=== PATIENT | male | born 1990 | race Two or more races ===

== ENCOUNTER 2023-12-20 07:48 | Inpatient (IN) | payer OTHER ==
[2023-12-17 08:49] LABS: Urine Bacteria None Seen /hpf (None Seen)
[2023-12-17 09:03] LABS: Basophils # (auto) 0 10 ^3/uL (0-0.2); Basophils % (auto) 0.5 % (0.0-2.0); Eosinophils # (auto) 0.2 10 ^3/uL (0-0.8); Eosinophils % (auto) 2.7 % (0.0-7.0); Hematocrit 44.7 % (41.0-53.0); Hemoglobin 15.1 g/dL (13.5-17.5); Lymphocytes # (auto) 2.1 10 ^3/uL (0.4-5.4); Lymphocytes % (auto) 30.8 % (10.0-50.0); Mean Corpuscular Hemoglobin 29.2 pg (28.0-32.0); Mean Corpuscular Hgb Conc. 33.8 g/dL (32.0-36.0); Mean Corpuscular Volume 86.4 fL (80.0-100.0); Monocytes # (auto) 0.4 10 ^3/uL (0-1.3); Monocytes % (auto) 6.2 % (0.0-12.0); Neutrophils # (auto) 4.1 10 ^3/uL (1.6-8.6); Neutrophils % (auto) 59.8 % (37.0-80.0); Nucleated Red Blood Cells % 0.2 %; Platelet Count (auto) 195 10^3/uL (140-450); Red Blood Cells 5.18 10^6/uL (4.5-5.90); Red Cell Distribution Width 14.9 % (11.8-14.3); White Blood Cell 6.8 10^3/uL (4.4-10.8)
[2023-12-17 09:18] LABS: INR 1.03 (0.9-1.15); Partial Thromboplastin Time 26.1 SEC (24.5-34.5); Prothrombin Time 10.9 sec (9.3-11.8)
[2023-12-17 09:22] LABS: Urine Blood Negative /uL (Negative); Urine Clarity Clear (Clear); Urine Color Light-Yellow (Yellow); Urine Protein, UAD Negative (Negative); Urine Specific Gravity 1.014 (1.001-1.035); Urine Urobilinogen Normal (Negative); Urine WBC <1 /hpf (0 - 3)
[2023-12-17 09:47] LABS: Alanine Aminotransferase 29 U/L (7-40); Albumin 4.4 g/dL (3.2-4.8); Alkaline Phosphatase 58 U/L (46-116); Anion Gap 8 (5-15); Aspartate Aminotransferase 14 U/L (13-40); BUN/Creatinine Ratio 7.4 (10.0-20.0); Blood Urea Nitrogen 7 mg/dL (9-23); Calcium 9.8 mg/dL (8.7-10.4); Carbon Dioxide 26 mmol/L (20-30); Chloride 105 mmol/L (98-107); Glucose 92 mg/dL (74-106); Potassium 4.4 mmol/L (3.5-5.1); Sodium 139 mmol/L (136-145)
[2023-12-17 09:48] LABS: Bilirubin, Total 0.6 mg/dL (0.2-1.0); Total Protein 6.9 g/dL (5.7-8.2)
[~2023-12-20] VITALS: Ht 188 cm; Wt 141.5 kg
[~2023-12-20 07:48] MED LIST: CYCL-839 PO; GABA-1250 PO; NAP500T PO
[2023-12-20 08:05] VITALS: BP 141/72; PULSE 85; RESP 16; TEMP 98.3; O2SAT 95
[2023-12-20] MEDS: ceFAZolin 2 GM/D5W100ml 100 ML IV ONE (08:37)
[2023-12-20] MEDS: levoFLOXacin 750MG 150 ML IV ONE (10:00)
[2023-12-20] MEDS ORDERED: KETAMINE 50mg/ML 1ml syringe ONE (10:53)
[2023-12-20] MEDS ORDERED: HYDROmorphone HCL 2 MG/ML VL/or syr ONE (10:53)
[2023-12-20] MEDS ORDERED: MIDAZOLAM HCL 2MG/2ML 2ml VIAL (1mg/ml) ONE (10:53)
[2023-12-20] MEDS ORDERED: fentaNYL CITRATE 100 MCG/2 ML VL ONE (10:53)
[2023-12-20] MEDS ORDERED: LIDOCAINE 1% INJ PF 5ML AMP ONE (10:54)
[2023-12-20] MEDS ORDERED: GLYCOPYRROLATE 0.2 MG/ML 1ML VIAL ONE (10:54)
[2023-12-20] MEDS ORDERED: DexAMETHasone SOD PHOS 10MG/1ML VIAL INJ ONE (10:54)
[2023-12-20] MEDS ORDERED: PROPOFOL 10 MG/ML 20 ML IV ONE ×5 (10:54→17:13)
[2023-12-20] MEDS ORDERED: ROCURONIUM 10MG/ML 10ML VIAL IV ONE (10:54)
[2023-12-20] MEDS ORDERED: KETOROLAC TROMETH 30 MG/ML 1ML VIAL ONE (10:54)
[2023-12-20] MEDS ORDERED: ONDANSETRON HCL 4 MG/2 ML VIAL ONE (10:54)
[2023-12-20] MEDS: TRANEXAMIC ACID 20 ML ONE (11:12)
[2023-12-20] MEDS: LIDOCAINE W/ EPINEPHRINE 1% 20ML VIAL ONE (11:12)
[2023-12-20] MEDS: oxyCODONE ER 10 MG TAB PO ONE ×2 (13:15→13:24)
[2023-12-20] MEDS: ACETAMINOPHEN IV 1000 MG/100ML (10MG/ML) IV ONE (13:15)
[2023-12-20] MEDS: GABAPENTIN 400 MG CAP PO ONE (13:15)
[2023-12-20] MEDS: ACETAMINOPHEN IV 100 ML IV ONE (13:18)
[2023-12-20] MEDS: GABAPENTIN 400 MG CAP ONE (13:24)
[2023-12-20] MEDS: LIDOCAINE 4MG/ML IV SOLN 500 ML IV ONE (13:26)
[2023-12-20] MEDS: MAGNESIUM SULFATE 1GM/100ML 100 ML IV ONE (13:26)
[2023-12-20] MEDS ORDERED: LIDOCAINE 2% TOPICAL JELLY 5 ML URJT TOP ONE (13:37)
[2023-12-20] MEDS: LIDOCAINE HCL 2 %PF INJ 10ML AMP IJ ONE (13:41)
[2023-12-20] MEDS ORDERED: ceFAZolin 1GM VL ONE ×2 (13:59→17:28)
[2023-12-20] MEDS ORDERED: ESMOLOL HCL 10 ML IV ONE (14:51)
[2023-12-20] MEDS ORDERED: ePHEDrine SULFATE 50 MG/ML AMP ONE (15:01)
[2023-12-20] MEDS ORDERED: SODIUM CHLORIDE LOCK 20 ML ONE (17:28)
[2023-12-20 18:30] VITALS: PULSE 86; RESP 17; O2SAT 100
[2023-12-20] MEDS: D5W/SOD CHLO 0.9% 1,000 ML IV SCH (18:30)
[2023-12-20] MEDS ORDERED: MORPHINE SULFATE INJ 2 MG/ml SYRG IV PRN (18:30)
[2023-12-20] MEDS ORDERED: NITROGLYCERIN 0.4 MG SL TAB SL PRN (18:30)
[2023-12-20] MEDS ORDERED: ACETAMINOPHEN 325 MG TAB PO PRN (18:30)
[2023-12-20] MEDS ORDERED: ONDANSETRON HCL 4 MG/2 ML VIAL IV PRN ×2 (18:30→18:45)
[2023-12-20 18:45] VITALS: PULSE 81; RESP 14; O2SAT 97
[2023-12-20] MEDS ORDERED: oxyCODONE HCL 5MG TAB PO PRN (18:45)
[2023-12-20] MEDS ORDERED: HYDROmorphone HCL 2 MG/ML VL/or syr IV PRN (18:45)
[2023-12-20] MEDS ORDERED: hydrALAZINE HCL 20 MG/ML VL IV PRN (18:45)
[2023-12-20] MEDS ORDERED: FLUMAZENIL 0.1 MG/ML INJ 10ML MDV IV PRN (18:45)
[2023-12-20] MEDS ORDERED: ePHEDrine SULFATE 50 MG/ML AMP IV PRN (18:45)
[2023-12-20] MEDS ORDERED: fentaNYL CITRATE 100 MCG/2 ML VL IV PRN (18:45)
[2023-12-20] MEDS ORDERED: NALOXONE HCL 0.4 MG/ML VIAL IV PRN (18:45)
[2023-12-20 20:18] VITALS: BP 141/72; PULSE 85; RESP 16; TEMP 98.3; O2SAT 95
[2023-12-20] MEDS: CARISOPRODOL 350 MG TAB PO SCH (21:25)
[2023-12-20] MEDS: DOCUSATE SOD 100 MG CAP PO SCH (21:25)
[2023-12-20] MEDS: ceFAZolin 1GM/50ML 50 ML IV SCH (21:30)
[2023-12-21] VITALS (8 sets, daily range): BP systolic 104–137; BP diastolic 60–84; PULSE 16–112; RESP 12–19; TEMP 97.5–99.2; O2SAT 93–97
[2023-12-21] MEDS: MORPHINE SULFATE 4 MG/ML SYR/VIAL IV PRN (01:30)
[2023-12-21] MEDS: GABAPENTIN 400 MG CAP PO SCH (09:20)
[2023-12-21] MEDS: HYDROcodone-ACET 10/325MG TAB PO PRN (09:21)
[2023-12-21] MEDS ORDERED: GABAPENTIN 300 MG CAP PO SCH (10:00)
[2023-12-22] VITALS (7 sets, daily range): BP systolic 113–150; BP diastolic 63–87; PULSE 81–93; RESP 14–19; TEMP 98.6–100.4; O2SAT 93–95
[2023-12-23] VITALS (8 sets, daily range): BP systolic 112–152; BP diastolic 62–72; PULSE 72–103; RESP 16–19; TEMP 99.1–101.6; O2SAT 94–96
[2023-12-23 13:36] LABS: Basophils # (auto) 0 10 ^3/uL (0-0.2); Basophils % (auto) 0.3 % (0.0-2.0); Eosinophils # (auto) 0.1 10 ^3/uL (0-0.8); Eosinophils % (auto) 0.4 % (0.0-7.0); Hemoglobin 14.7 g/dL (13.5-17.5); Lymphocytes # (auto) 2.2 10 ^3/uL (0.4-5.4); Lymphocytes % (auto) 15.4 % (10.0-50.0); Mean Corpuscular Hemoglobin 29.6 pg (28.0-32.0); Mean Corpuscular Hgb Conc. 34.3 g/dL (32.0-36.0); Mean Corpuscular Volume 86.3 fL (80.0-100.0); Monocytes # (auto) 1.2 10 ^3/uL (0-1.3); Monocytes % (auto) 8.2 % (0.0-12.0); Neutrophils # (auto) 10.8 10 ^3/uL (1.6-8.6); Neutrophils % (auto) 75.7 % (37.0-80.0); Platelet Count (auto) 209 10^3/uL (140-450); Red Blood Cells 4.99 10^6/uL (4.5-5.90); White Blood Cell 14.2 10^3/uL (4.4-10.8)
[2023-12-23] MEDS: cefTRIAXone 1GM/50ML D5W 50 ML IV SCH (16:38)
[2023-12-23 17:48] LABS: Urine Bacteria None Seen /hpf (None Seen)
[2023-12-23 17:56] LABS: Urine Blood Negative /uL (Negative); Urine Clarity Clear (Clear); Urine Color Yellow (Yellow); Urine Protein, UAD TRACE (Negative); Urine Specific Gravity 1.014 (1.001-1.035); Urine Urobilinogen 4 mg/dL (Negative); Urine WBC <1 /hpf (0 - 3)
[2023-12-23] MEDS: MAGNESIUM SULFATE 1GM/100ML 100 ML IV SCH (18:21)
[2023-12-23] MEDS: DOCUSATE SOD 100 MG CAP PO SCH (21:02)
[2023-12-24 01:00] VITALS: BP 114/71; PULSE 87; RESP 16; TEMP 100.1; O2SAT 96
[2023-12-24 05:00] VITALS: BP 118/68; PULSE 85; RESP 19; TEMP 98.9; O2SAT 96
[2023-12-24 06:33] LABS: Basophils # (auto) 0.1 10 ^3/uL (0-0.2); Basophils % (auto) 0.4 % (0.0-2.0); Eosinophils # (auto) 0.1 10 ^3/uL (0-0.8); Eosinophils % (auto) 0.9 % (0.0-7.0); Hematocrit 42.4 % (41.0-53.0); Hemoglobin 14.5 g/dL (13.5-17.5); Lymphocytes # (auto) 2.1 10 ^3/uL (0.4-5.4); Lymphocytes % (auto) 16.3 % (10.0-50.0); Mean Corpuscular Hemoglobin 29.7 pg (28.0-32.0); Mean Corpuscular Hgb Conc. 34.2 g/dL (32.0-36.0); Mean Corpuscular Volume 86.6 fL (80.0-100.0); Monocytes # (auto) 1.2 10 ^3/uL (0-1.3); Monocytes % (auto) 9.5 % (0.0-12.0); Neutrophils # (auto) 9.4 10 ^3/uL (1.6-8.6); Neutrophils % (auto) 72.9 % (37.0-80.0); Platelet Count (auto) 214 10^3/uL (140-450); Red Cell Distribution Width 14.1 % (11.8-14.3); White Blood Cell 12.9 10^3/uL (4.4-10.8)
[2023-12-24 06:39] LABS: Alanine Aminotransferase 88 U/L (7-40); Albumin 4.4 g/dL (3.2-4.8); Alkaline Phosphatase 115 U/L (46-116); Anion Gap 8 (5-15); Aspartate Aminotransferase 75 U/L (13-40); BUN/Creatinine Ratio 9.2 (10.0-20.0); Bilirubin, Total 2.5 mg/dL (0.2-1.0); Blood Urea Nitrogen 8 mg/dL (9-23); Calcium 9.8 mg/dL (8.7-10.4); Carbon Dioxide 29 mmol/L (20-30); Chloride 99 mmol/L (98-107); Glucose 102 mg/dL (74-106); Magnesium 2.5 mg/dL (1.6-2.6); Potassium 3.6 mmol/L (3.5-5.1); Sodium 136 mmol/L (136-145); Total Protein 7.1 g/dL (5.7-8.2)
[2023-12-24 09:00] VITALS: BP 110/49; PULSE 80; RESP 18; TEMP 98.8; O2SAT 97
[2023-12-24] MEDS: CYCLOBENZAPRINE HCL 10 MG TAB PO SCH (10:38)
[2023-12-24] MEDS: NAPROXEN 500 MG TAB PO SCH (10:39)
[2023-12-24 13:00] VITALS: BP 121/66; PULSE 70; RESP 20; TEMP 98; O2SAT 98
[2023-12-24 17:00] VITALS: BP 107/48; PULSE 101; RESP 18; TEMP 98.6; O2SAT 98
[2023-12-24 18:19] VITALS: BP 107/48; PULSE 101; RESP 18; TEMP 98.6; O2SAT 98
== END 2023-12-24 19:00 | disposition home or self-care (01) | DRG 460 ==
LOC: SUR 07:48 → OVERFLOW 18:44 → WEST WING 19:56
PROVIDERS: ADMIT Orthopaedic Surgery; ATTEND Orthopaedic Surgery
PROC: 0SB40ZZ Excision of Lumbosacral Disc, Open Approach (ICD-10-PCS; 2023-12-20)
PROC: 01NB0ZZ Release Lumbar Nerve, Open Approach (ICD-10-PCS; 2023-12-20)
PROC: 01NR0ZZ Release Sacral Nerve, Open Approach (ICD-10-PCS; 2023-12-20)
PROC: 00NY0ZZ Release Lumbar Spinal Cord, Open Approach (ICD-10-PCS; 2023-12-20)
PROC: 4A11X4G Monitoring of Peripheral Nervous Electrical Activity, Intraoperative, External Approach (ICD-10-PCS; 2023-12-20)
PROC: 0SG3071 Fusion of Lumbosacral Joint with Autologous Tissue Substitute, Posterior Approach, Posterior Column, Open Approach (ICD-10-PCS; principal; 2023-12-20 13:41)
DX: M48.062 Spinal stenosis, lumbar region with neurogenic claudication (principal); Z68.41 Body mass index [BMI] 40.0-44.9, adult; M51.16 Intervertebral disc disorders with radiculopathy, lumbar region; M48.07 Spinal stenosis, lumbosacral region; M43.17 Spondylolisthesis, lumbosacral region; R50.82 Postprocedural fever; E66.01 Morbid (severe) obesity due to excess calories; R74.01 Elevation of levels of liver transaminase levels; Z79.899 Other long term (current) drug therapy
CPT/HCPCS: 36415; 71045; 72100; 76000; 80053; 81001; 83735; 85025; 85610; 85730; 86850; 86900; 86901; 87040; 87081; 97110; 97116; 97163; 97530; G0378; J0131; J0690; J1100; J1885; J2250; J2405; J2704; J7042